=== PATIENT | male | born 1965 | race Caucasian/White ===

== ENCOUNTER → 2016-08-28 | Outpatient (CLI) | payer OTHER ==
[~2016-08-28] MED LIST: NXM/40 PO; SUCR1TAB29 PO
[2016-08-28 17:25] LABS: ALT/SGPT 35 U/L (12-78); BLOOD UREA NITROGEN 13 mg/dl (7-18); BUN/CREATININE RATIO 9.6 (10-20); CALCIUM 8.6 mg/dl (8.5-10.1); CARBON DIOXIDE 25 mmol/L (21-32); CHLORIDE 107 mmol/L (98-107); CHOLESTEROL 232 mg/dl (0-200); GLUCOSE 95 mg/dl (70-99); POTASSIUM 4.1 mmol/L (3.5-5.1); SODIUM 142 mmol/L (136-145)
[2016-08-28 17:28] LABS: ALB/GLOB RATIO 1.1 (0.9-2); ALKALINE PHOSPHATASE 65 U/L (45-117); AST/SGOT 20 U/L (15-37); CHOLESTEROL/HDL RATIO 3.9; HDL CHOLESTEROL 59 mg/dl; LDL CHOLESTEROL CALCULATED 155 mg/dl; TRIGLYCERIDES 92 mg/dl (0-150); VERY LOW DENSITY LIPOPROT CALC 18 mg/dl
== END | disposition home or self-care (01) ==
LOC: C.LABBFT 11:06
PROVIDERS: ATTEND Internal Medicine Geriatric Medicine
DX: E78.5 Hyperlipidemia, unspecified (principal); I10 Essential (primary) hypertension; Z11.59 Encounter for screening for other viral diseases

== ENCOUNTER → 2016-12-12 | Outpatient (CLI) | payer OTHER ==
[2016-12-12 17:42] LABS: BLOOD UREA NITROGEN 14 mg/dl (7-18); BUN/CREATININE RATIO 10.9 (10-20); CALCIUM 8.9 mg/dl (8.5-10.1); CARBON DIOXIDE 27 mmol/L (21-32); CHLORIDE 107 mmol/L (98-107); GLUCOSE 98 mg/dl (70-99); SODIUM 141 mmol/L (136-145)
== END | disposition home or self-care (01) ==
LOC: C.LABBFT 12:35
PROVIDERS: ATTEND Internal Medicine Geriatric Medicine
DX: I10 Essential (primary) hypertension (principal)

== ENCOUNTER → 2017-09-03 | Outpatient (CLI) | payer OTHER ==
[2017-09-03 17:58] LABS: BASO % 0.3 %; BASO ABS # 0.02 K/uL (0-0.2); EOS % 0.6 %; EOS ABS # 0.04 K/uL (0-0.5); HEMATOCRIT 47.5 % (42-52); HEMOGLOBIN 16.5 g/dL (14.0-18.0); LYMPH % 37.1 %; LYMPH ABS # 2.51 K/uL (1.2-3.4); MEAN CELL VOLUME 88.6 fL (80-100); MEAN CORPUSCULAR HEMOGLOBIN 30.8 pg (25-34); MEAN CORPUSCULAR HGB CONC 34.7 g/dl (32-36); MEAN PLATELET VOLUME 11.6 fL (7.4-10.4); MONO % 6.1 %; MONO ABS # 0.41 K/uL (0.11-0.59); NEUT % 55.9 %; NEUT ABS # 3.78 K/uL (1.4-6.5); PLATELET COUNT 207 K/uL (130-400); RED CELL DISTRIBUTION WIDTH CV 12.8 % (11.5-14.5); RED CELL DISTRIBUTION WIDTH SD 41.4 fL (36.4-46.3); WHITE BLOOD COUNT 6.76 K/uL (4.8-10.8)
[2017-09-03 18:31] LABS: BLOOD UREA NITROGEN 18 mg/dl (7-18); CARBON DIOXIDE 25 mmol/L (21-32); GLUCOSE 100 mg/dl (70-99); POTASSIUM 4.1 mmol/L (3.5-5.1); SODIUM 135 mmol/L (136-145)
[2017-09-03 18:38] LABS: CHOLESTEROL 261 mg/dl (0-200); LDL CHOLESTEROL CALCULATED 183 mg/dl
== END | disposition home or self-care (01) ==
LOC: C.LABBFT 11:19
PROVIDERS: ATTEND Internal Medicine Geriatric Medicine
DX: Z00.00 Encounter for general adult medical examination without abnormal findings (principal); I10 Essential (primary) hypertension; E78.5 Hyperlipidemia, unspecified

== ENCOUNTER → 2017-11-12 | Outpatient (CLI) | payer OTHER ==
--- NOTE | 2017-11-14 15:45 | POLYSOMNOGRAPH REPORT ---
CLINICAL DATA: A 52-year-old male with BMI of 27.[address] Montgomery with heavy snoring and headaches. On the evening of 11/12/2017, a home sleep apnea test was performed using a [employer] type 3 monitor. RECORDING RESULTS: Total recording time was 10 hours. The patient's monitoring time and estimated sleep time was 9.2 hours. RESPIRATORY DATA: There was no evidence of clinically significant sleep apnea seen. The TIAGO was 1.9. There was 1 obstructive, 2 mixed, and 11 central apneic episodes. There were 3 hypopneic episodes. The longest respiratory event was 33 seconds. OXIMETRY DATA: No hypoxemia was seen. Oxygen chema was 91%. Mean saturation was 95%. HEART RATE DATA: Heart rates ranged from 43 to 62 beats per minute. SNORING DATA: Snoring was recorded throughout the night. CLINICAL PROJECT COORDINATOR'S COMMENTS: The patient had snoring throughout the night. There were no significant respiratory events other than when he slept on his back for a short time. During that 10-minute period, he had primarily central apneic episodes. IMPRESSION: No evidence of clinically significant sleep apnea/hypopnea or nocturnal hypoxemia to explain this patient's symptoms. RECOMMENDATIONS: The patient should continue to practice good sleep hygiene. JAZMINE
== END | disposition home or self-care (01) ==
LOC: C.NEUR 08:25
PROVIDERS: ATTEND Nurse Practitioner Adult Health
DX: R06.83 Snoring (principal); G44.209 Tension-type headache, unspecified, not intractable; I10 Essential (primary) hypertension; M54.2 Cervicalgia; Z88.1 Allergy status to other antibiotic agents